=== PATIENT | female | born 1990 | race Two or more races ===

== ENCOUNTER 2017-03-30 13:52 | Emergency (ER) | payer MEDICAID ==
[~2017-03-30] VITALS: Ht 170.2 cm; Wt 105.5 kg
[2017-03-30] MEDS ORDERED: DIVA500T35 PO (14:40)
[2017-03-30] MEDS ORDERED: BENZ-51 PO (14:40)
[2017-03-30] MEDS ORDERED: CLOZ100 PO ×2 (14:40)
[2017-03-30] MEDS ORDERED: ALBU8.5H8 IH (14:40)
[2017-03-30] MEDS ORDERED: FAMO20 PO (14:40)
[2017-03-30] MEDS ORDERED: AMAN100C12 PO (14:40)
[2017-03-30] MEDS ORDERED: LITH300C3 PO (14:40)
[2017-03-30] MEDS ORDERED: PALI6 PO (14:40)
[2017-03-30] MEDS ORDERED: LORA0.5T2 PO (14:40)
[2017-03-30 16:06] LABS: BASOPHILS % (AUTO) 0.6 % (0.0-2.0); EOSINOPHILS % (AUTO) 3.2 % (1.0-6.0); HEMATOCRIT 42.6 % (36-46); HEMOGLOBIN 14.8 g/dL (12.0-16.0); LYMPHOCYTES # (AUTO) 2.5 K/uL (1.0-4.8); LYMPHOCYTES % (AUTO) 38.7 % (22.0-44.0); MEAN CORPUSCULAR HEMOGLOBIN 31.9 pg (26.0-34.0); MEAN CORPUSCULAR HGB CONC 34.7 G/dL (31.0-37.0); MEAN CORPUSCULAR VOLUME 92 fL (80-100); MONOCYTES # (AUTO) 0.5 K/uL (0.1-1.0); MONOCYTES % (AUTO) 8.1 % (2.0-9.0); NEUTROPHILS # (AUTO) 3.2 K/uL (1.8-7.7); NEUTROPHILS % (AUTO) 49.4 % (40.0-70.0); PLATELET COUNT (AUTO) 143 K/uL (150-450); RED BLOOD CELL COUNT(AUTO) 4.64 MIL/uL (4.00-5.20); RED CELL DISTRIBUTION WIDTH 12.4 % (11.5-14.5)
[2017-03-30 16:18] LABS: ANION GAP 13 mmol/L (8-16); CALCIUM, TOTAL 9.3 mg/dL (8.8-10.5); CARBON DIOXIDE 24 mmol/L (22-29); CHLORIDE 105 mmol/L (98-107); CREATININE 0.75 mg/dL (0.60-1.30); GLOMERULAR FILTR. RATE CALC > 60 mL/min (>60); GLUCOSE,RANDOM 93 mg/dL (70-110); POTASSIUM 4.1 mmol/L (3.5-5.1); SODIUM SERUM 142 mmol/L (136-145); UREA NITROGEN, BLOOD 17 mg/dL (7-18)
[2017-03-30 16:25] LABS: LITHIUM < 0.20 mmol/L (0.60-1.20)
[2017-03-30 16:33] LABS: ALANINE AMINOTRANSFERASE 22 U/L (12-78); ALBUMIN 4.1 g/dL (3.4-5.0); ALKALINE PHOSPHATASE 111 U/L (46-116); ASPARTATE AMINOTRANSFERASE 18 U/L (15-37); BILIRUBIN,TOTAL 0.3 mg/dL (0.1-1.0); THYROID STIMULATING HORMONE 1.94 uIU/mL (0.36-3.74); TOTAL PROTEIN, SERUM 7.3 g/dL (6.4-8.2); VALPROIC ACID 70 mcg/mL (50-100)
[2017-03-30 18:24] LABS: AMPHET/METH SCREEN,URINE NEGATIVE (NEGATIVE); BARBITURATE SCREEN, URINE NEGATIVE (NEGATIVE); BENZODIAZEPINES SCREEN,URINE NEGATIVE (NEGATIVE); CANNABINOID SCREEN,URINE NEGATIVE (NEGATIVE); COCAINE SCREEN,URINE NEGATIVE (NEGATIVE); METHADONE SCREEN, URINE NEGATIVE (NEGATIVE); OPIATE SCREEN,URINE NEGATIVE (NEGATIVE)
[2017-03-30 18:27] LABS: PHENCYCLIDINE SCREEN,URINE NEGATIVE (NEGATIVE)
[2017-03-30] MEDS ORDERED: HALOPERIDOL 5 MG TABLET PO ONE (20:15)
[2017-03-30 20:40] VITALS: BP 118/78
== END 2017-03-30 20:45 | disposition home or self-care (01) ==
LOC: EMS 13:53
DX: F20.9 Schizophrenia, unspecified (principal); F32.9 Major depressive disorder, single episode, unspecified; J45.909 Unspecified asthma, uncomplicated; F17.210 Nicotine dependence, cigarettes, uncomplicated; Z88.0 Allergy status to penicillin
CPT/HCPCS: 36415; 80053; 80164; 80178; 80307; 84443; 84703; 85025; 99284; G0480

== ENCOUNTER 2017-12-12 04:07 | Emergency (ER) | payer MEDICAID ==
[~2017-12-12] VITALS: Ht 167.6 cm; Wt 76.0 kg
[~2017-12-12 04:07] MED LIST: ALBU8.5H8 IH; AMAN100C12 PO; CLOZ100 PO; DIVA-78 PO; LITH300C3 PO; LORA0.5T2 PO; PALI1.5T PO; PALI6 PO
[2017-12-12 05:12] LABS: APPEARANCE,URINE CLEAR (CLEAR); BILIRUBIN,URINE NEGATIVE (NEGATIVE); GLUCOSE, URINE (UA) NEGATIVE (NEGATIVE); KETONES,URINE NEGATIVE (NEGATIVE); LEUKOCYTE ESTERASE ,URINE NEGATIVE (NEGATIVE); NITRATE,URINE NEGATIVE (NEGATIVE); OCCULT BLOOD,URINE NEGATIVE (NEGATIVE); PROTEIN,URINE NEGATIVE (NEGATIVE); UROBILINOGEN,URINE 0.2 mg/dL (<=1.0)
[2017-12-12 05:17] LABS: AMPHET/METH SCREEN,URINE NEGATIVE (NEGATIVE); BARBITURATE SCREEN, URINE NEGATIVE (NEGATIVE); BENZODIAZEPINES SCREEN,URINE NEGATIVE (NEGATIVE); CANNABINOID SCREEN,URINE NEGATIVE (NEGATIVE); COCAINE SCREEN,URINE NEGATIVE (NEGATIVE); METHADONE SCREEN, URINE NEGATIVE (NEGATIVE); OPIATE SCREEN,URINE NEGATIVE (NEGATIVE)
[2017-12-12 05:25] LABS: PHENCYCLIDINE SCREEN,URINE NEGATIVE (NEGATIVE)
[2017-12-12 05:44] LABS: ANION GAP 7 mmol/L (8-16); CALCIUM, TOTAL 9.2 mg/dL (8.8-10.5); CARBON DIOXIDE 27 mmol/L (22-29); CHLORIDE 105 mmol/L (98-107); GLOMERULAR FILTR. RATE CALC > 60 mL/min (>60); GLUCOSE,RANDOM 90 mg/dL (70-110); POTASSIUM 4.2 mmol/L (3.5-5.1); SODIUM SERUM 139 mmol/L (136-145); UREA NITROGEN, BLOOD 8 mg/dL (7-18)
[2017-12-12 05:50] LABS: ALANINE AMINOTRANSFERASE 37 U/L (12-78); ALBUMIN 3.3 g/dL (3.4-5.0); ALKALINE PHOSPHATASE 92 U/L (46-116); ASPARTATE AMINOTRANSFERASE 30 U/L (15-37); BILIRUBIN,TOTAL 0.5 mg/dL (0.1-1.0); TOTAL PROTEIN, SERUM 6.9 g/dL (6.4-8.2)
[2017-12-12 06:03] LABS: BASOPHILS % (AUTO) 0.6 % (0.0-2.0); EOSINOPHILS % (AUTO) 1.1 % (1.0-6.0); HEMOGLOBIN 14.6 g/dL (12.0-16.0); LYMPHOCYTES % (AUTO) 44.3 % (22.0-44.0); MEAN CORPUSCULAR HEMOGLOBIN 32.2 pg (26.0-34.0); MEAN CORPUSCULAR HGB CONC 35.7 G/dL (31.0-37.0); MEAN CORPUSCULAR VOLUME 90 fL (80-100); MONOCYTES # (AUTO) 0.5 K/uL (0.1-1.0); MONOCYTES % (AUTO) 10.8 % (2.0-9.0); NEUTROPHILS # (AUTO) 1.9 K/uL (1.8-7.7); NEUTROPHILS % (AUTO) 43.2 % (40.0-70.0); PLATELET COUNT (AUTO) 164 K/uL (150-450); RED BLOOD CELL COUNT(AUTO) 4.54 MIL/uL (4.00-5.20); RED CELL DISTRIBUTION WIDTH 12.8 % (11.5-14.5)
[2017-12-12 07:27] VITALS: BP 117/73
== END 2017-12-12 07:57 | disposition home or self-care (01) ==
LOC: EMS 04:09
DX: S00.83XA Contusion of other part of head, initial encounter (principal); F20.9 Schizophrenia, unspecified; F31.9 Bipolar disorder, unspecified; F41.9 Anxiety disorder, unspecified; F17.210 Nicotine dependence, cigarettes, uncomplicated; J45.909 Unspecified asthma, uncomplicated; Z88.0 Allergy status to penicillin; Z79.899 Other long term (current) drug therapy; W19.XXXA Unspecified fall, initial encounter; Y93.89 Activity, other specified; Y92.89 Other specified places as the place of occurrence of the external cause; Y99.8 Other external cause status
CPT/HCPCS: 51701; 70450

== ENCOUNTER 2017-12-29 10:43 | Emergency (ER) | payer MEDICAID ==
[~2017-12-29] VITALS: Ht 162.6 cm; Wt 72.7 kg
[2017-12-29] MEDS ORDERED: HALOPERIDOL LACTATE 5 MG/ML VIAL IM ONE (11:00)
[2017-12-29] MEDS ORDERED: DiphenhydrAMINE HCL 50 MG/ML VIAL IM ONE (11:00)
[2017-12-29] MEDS ORDERED: LORazepam 2 MG/ML VIAL IM ONE (11:00)
[2017-12-29] MEDS ORDERED: PERTUSS(ACELL),DIPH,TET VAC/PF 0.5 ML VIAL IM ONE (12:15)
[2017-12-29 13:56] VITALS: BP 101/69
== END 2017-12-29 14:39 | disposition home or self-care (01) ==
LOC: EMS 10:44
DX: S01.511A Laceration without foreign body of lip, initial encounter (principal); F41.9 Anxiety disorder, unspecified; F32.9 Major depressive disorder, single episode, unspecified; F20.9 Schizophrenia, unspecified; F17.210 Nicotine dependence, cigarettes, uncomplicated; Z88.0 Allergy status to penicillin; Y04.0XXA Assault by unarmed brawl or fight, initial encounter; Y93.89 Activity, other specified; Y92.89 Other specified places as the place of occurrence of the external cause; Y99.8 Other external cause status
CPT/HCPCS: 70450; 90471; 90715; 96372; 99284; J1200; J1630; J2060

== ENCOUNTER 2018-01-10 10:34 | Emergency (ER) | payer MEDICAID ==
[~2018-01-10] VITALS: Ht 172.7 cm; Wt 84.9 kg
[2018-01-10 13:16] VITALS: BP 101/53
== END 2018-01-10 14:18 | disposition home or self-care (01) ==
LOC: EMS 10:36
DX: S01.511A Laceration without foreign body of lip, initial encounter (principal); M25.551 Pain in right hip; J45.909 Unspecified asthma, uncomplicated; F32.9 Major depressive disorder, single episode, unspecified; F20.9 Schizophrenia, unspecified; F41.9 Anxiety disorder, unspecified; F17.210 Nicotine dependence, cigarettes, uncomplicated; Z88.0 Allergy status to penicillin; W19.XXXA Unspecified fall, initial encounter; Y93.89 Activity, other specified; Y92.89 Other specified places as the place of occurrence of the external cause; Y99.8 Other external cause status
CPT/HCPCS: 70450; 99406

== ENCOUNTER 2018-04-26 13:40 | Inpatient (IN) | payer MEDICAID ==
[~2018-04-26] VITALS: Ht 167.6 cm; Wt 66.0 kg
[~2018-04-26 13:40] MED LIST changes: -ALBU8.5H8 IH; -AMAN100C12 PO; +BENZ1TAB10 PO; +CLON2 PO; -CLOZ100 PO; -DIVA-78 PO; +LACT30L PO; +LEVO250 PO; -LITH300C3 PO; -LORA0.5T2 PO; +MEGE400O4 PO; -PALI1.5T PO; -PALI6 PO; +RIFAX550 PO
[2018-04-26] MEDS ORDERED: ZOLPIDEM TARTRATE 10 MG TABLET PO PRN (15:15)
[2018-04-26] MEDS: RIFAXIMIN 550 MG TABLET PO SCH (18:30)
[2018-04-26] MEDS: LACTULOSE 20 GM/30 ML SOLUTION UDCUP PO SCH (18:30)
[2018-04-26 19:40] VITALS: BP 120/76
[2018-04-27 08:25] VITALS: BP 122/77
[2018-04-27] MEDS: LACTULOSE 20 GM/30 ML SOLUTION UDCUP PO SCH ×2 (09:00→17:55)
[2018-04-27] MEDS: RIFAXIMIN 550 MG TABLET PO SCH ×3 (10:10→17:55)
[2018-04-27] MEDS: LEVOFLOXACIN 250 MG TABLET PO SCH (10:10)
[2018-04-27 16:01] VITALS: BP 122/82
[2018-04-28] MEDS: RIFAXIMIN 550 MG TABLET PO SCH ×3 (09:12→17:45)
[2018-04-28] MEDS: LEVOFLOXACIN 250 MG TABLET PO SCH (09:12)
[2018-04-28] MEDS: LACTULOSE 20 GM/30 ML SOLUTION UDCUP PO SCH ×2 (09:13→17:45)
[2018-04-28 13:54] VITALS: BP 85/67
[2018-04-28 14:50] LABS: THYROID STIMULATING HORMONE < 0.01 uIU/mL (0.36-3.74)
[2018-04-28 16:00] VITALS: BP 114/7
[2018-04-28] MEDS: METHIMAZOLE 5 MG TABLET PO SCH (17:45)
[2018-04-29] MEDS: RIFAXIMIN 550 MG TABLET PO SCH ×3 (08:01→16:49)
[2018-04-29] MEDS: LACTULOSE 20 GM/30 ML SOLUTION UDCUP PO SCH ×2 (08:01→16:48)
[2018-04-29] MEDS: METHIMAZOLE 5 MG TABLET PO SCH (08:01)
[2018-04-29 08:30] VITALS: BP 109/75
[2018-04-29 16:45] VITALS: BP 108/60
[2018-04-30] MEDS: RIFAXIMIN 550 MG TABLET PO SCH ×3 (08:22→17:51)
[2018-04-30] MEDS: METHIMAZOLE 5 MG TABLET PO SCH (08:22)
[2018-04-30] MEDS: LACTULOSE 20 GM/30 ML SOLUTION UDCUP PO SCH ×2 (08:22→17:50)
[2018-05-01] MEDS: RIFAXIMIN 550 MG TABLET PO SCH ×3 (08:35→17:20)
[2018-05-01] MEDS: METHIMAZOLE 5 MG TABLET PO SCH (08:35)
[2018-05-01] MEDS: LACTULOSE 20 GM/30 ML SOLUTION UDCUP PO SCH ×2 (08:35→17:20)
[2018-05-01 09:00] VITALS: BP 108/69
[2018-05-01 16:07] VITALS: BP 109/72
[2018-05-02 07:22] LABS: ALANINE AMINOTRANSFERASE 26 U/L (12-78); ALBUMIN 3.7 g/dL (3.4-5.0); ALKALINE PHOSPHATASE 69 U/L (46-116); ANION GAP 9 mmol/L (8-16); ASPARTATE AMINOTRANSFERASE 21 U/L (15-37); BILIRUBIN,TOTAL 0.8 mg/dL (0.1-1.0); CARBON DIOXIDE 26 mmol/L (22-29); CHLORIDE 104 mmol/L (98-107); CREATININE 0.75 mg/dL (0.60-1.30); GLOMERULAR FILTR. RATE CALC > 60 mL/min (>60); GLUCOSE,RANDOM 88 mg/dL (70-110); POTASSIUM 4.1 mmol/L (3.5-5.1); SODIUM SERUM 139 mmol/L (136-145); TOTAL PROTEIN, SERUM 6.1 g/dL (6.4-8.2); UREA NITROGEN, BLOOD 14 mg/dL (7-18)
[2018-05-02 07:23] LABS: CALCIUM, TOTAL 13.5 mg/dL (8.8-10.5)
[2018-05-02] MEDS: LACTULOSE 20 GM/30 ML SOLUTION UDCUP PO SCH (08:56)
[2018-05-02] MEDS: METHIMAZOLE 5 MG TABLET PO SCH (08:56)
[2018-05-02] MEDS: RIFAXIMIN 550 MG TABLET PO SCH (08:56)
[2018-05-02] MEDS ORDERED: SODIUM CHLORIDE 0.45% 1,000 ML IV SCH (11:00)
== END 2018-05-02 10:28 | disposition short-term general hospital (02) | DRG 750 ==
LOC: 3EC 13:40
PROVIDERS: ADMIT Psychiatry & Neurology Psychiatry; ATTEND Psychiatry & Neurology Psychiatry
DX: F25.0 Schizoaffective disorder, bipolar type (principal); K70.30 Alcoholic cirrhosis of liver without ascites; K72.90 Hepatic failure, unspecified without coma; J45.909 Unspecified asthma, uncomplicated; Z81.8 Family history of other mental and behavioral disorders; Z87.01 Personal history of pneumonia (recurrent); Z88.0 Allergy status to penicillin; Z79.899 Other long term (current) drug therapy
CPT/HCPCS: 76536; 84439; 84443; 84445; 84481; 86376; 87081; 92610

== ENCOUNTER 2018-05-02 10:35 | Inpatient (IN) | payer MEDICAID ==
[~2018-05-02] VITALS: Ht 167.6 cm; Wt 72.1 kg
[2018-05-02 11:15] VITALS: BP 91/66
[2018-05-02] MEDS: CALCITONIN,SALMON,SYNTHETIC 200 UNITS/ML 2 ML VIAL SQ SCH ×2 (12:45→20:56)
[2018-05-02] MEDS: SODIUM CHLORIDE 0.45% 1,000 ML IV SCH ×2 (12:51→22:52)
[2018-05-02] MEDS ORDERED: PAMIDRONATE DISODIUM 60 MG in SODIUM CHLORIDE 0.9% 500 ML IV ONE (13:00)
[2018-05-02] MEDS ORDERED: MORPHINE SULFATE 2 MG/ML SYRINGE IVP PRN (13:30)
[2018-05-02] MEDS ORDERED: MAGNESIUM HYDROXIDE SUSPENSION 30 ML UDCUP PO PRN (13:30)
[2018-05-02] MEDS ORDERED: BISACODYL 10 MG RECTAL RECTAL SUPPOSITORY PR PRN (13:30)
[2018-05-02] MEDS ORDERED: ONDANSETRON HCL 4 MG/2 ML VIAL IVP PRN (13:30)
[2018-05-02] MEDS ORDERED: SODIUM CHLORIDE 0.9% 1,000 ML IV ONE (13:30)
[2018-05-02] MEDS ORDERED: ZOLPIDEM TARTRATE 5 MG TABLET PO PRN (13:30)
[2018-05-02 15:14] VITALS: BP 95/58
[2018-05-02] MEDS: HEPARIN SODIUM,PORCINE 5,000 UNITS/ML VIAL SQ SCH ×2 (16:13→22:53)
[2018-05-02 16:43] VITALS: BP 128/49
[2018-05-02 17:24] LABS: ANION GAP 9 mmol/L (8-16); CARBON DIOXIDE 25 mmol/L (22-29); CHLORIDE 102 mmol/L (98-107); CREATININE 0.67 mg/dL (0.60-1.30); GLOMERULAR FILTR. RATE CALC > 60 mL/min (>60); GLUCOSE,RANDOM 88 mg/dL (70-110); PHOSPHORUS 4.4 mg/dL (2.5-4.9); POTASSIUM 4.2 mmol/L (3.5-5.1); SODIUM SERUM 136 mmol/L (136-145); UREA NITROGEN, BLOOD 13 mg/dL (7-18)
[2018-05-02 17:31] LABS: CALCIUM, TOTAL 12.3 mg/dL (8.8-10.5)
[2018-05-02 20:00] VITALS: BP 95/50
[2018-05-02] MEDS: DOCUSATE SODIUM 100 MG CAPSULE PO SCH (20:56)
[2018-05-02] MEDS ORDERED: SODIUM CHLORIDE 0.9% 250 ML IV ONE (23:10)
[2018-05-02 23:17] VITALS: BP 99/65
[2018-05-03 04:16] VITALS: BP 99/55
[2018-05-03] MEDS: SODIUM CHLORIDE 0.45% 1,000 ML IV SCH ×4 (05:05→23:04)
[2018-05-03] MEDS: HEPARIN SODIUM,PORCINE 5,000 UNITS/ML VIAL SQ SCH ×4 (08:00→23:03)
[2018-05-03 08:15] VITALS: BP 101/65
[2018-05-03] MEDS: DOCUSATE SODIUM 100 MG CAPSULE PO SCH ×3 (09:00→20:14)
[2018-05-03] MEDS: PANTOPRAZOLE SODIUM 40 MG DR TABLET PO SCH (09:17)
[2018-05-03] MEDS: METHIMAZOLE 10 MG TABLET PO SCH (09:17)
[2018-05-03] MEDS: CALCITONIN,SALMON,SYNTHETIC 200 UNITS/ML 2 ML VIAL SQ SCH ×2 (09:18→20:14)
[2018-05-03] MEDS: HYDROCODONE/ACETAMINOPHEN 5-325 MG TABLET PO PRN (09:19)
[2018-05-03 11:15] VITALS: BP 99/66
[2018-05-03 15:45] VITALS: BP 112/65
[2018-05-03 20:57] VITALS: BP 98/60
[2018-05-04 04:08] VITALS: BP 97/46
[2018-05-04] MEDS: HYDROCODONE/ACETAMINOPHEN 5-325 MG TABLET PO PRN ×2 (04:09→15:36)
[2018-05-04] MEDS: SODIUM CHLORIDE 0.45% 1,000 ML IV SCH (05:13)
[2018-05-04 07:57] VITALS: BP 101/57
[2018-05-04] MEDS: METHIMAZOLE 10 MG TABLET PO SCH (08:08)
[2018-05-04] MEDS: PANTOPRAZOLE SODIUM 40 MG DR TABLET PO SCH (08:08)
[2018-05-04] MEDS: HEPARIN SODIUM,PORCINE 5,000 UNITS/ML VIAL SQ SCH ×3 (08:11→23:25)
[2018-05-04] MEDS: DOCUSATE SODIUM 100 MG CAPSULE PO SCH ×2 (08:11→20:39)
[2018-05-04] MEDS: CALCITONIN,SALMON,SYNTHETIC 200 UNITS/ML 2 ML VIAL SQ SCH (08:13)
[2018-05-04 09:02] LABS: ANION GAP 12 mmol/L (8-16); CALCIUM, TOTAL 8.9 mg/dL (8.8-10.5); CARBON DIOXIDE 21 mmol/L (22-29); CHLORIDE 105 mmol/L (98-107); CREATININE 0.52 mg/dL (0.60-1.30); GLOMERULAR FILTR. RATE CALC > 60 mL/min (>60); GLUCOSE,RANDOM 89 mg/dL (70-110); PHOSPHORUS 2.2 mg/dL (2.5-4.9); POTASSIUM 3.1 mmol/L (3.5-5.1); SODIUM SERUM 138 mmol/L (136-145); UREA NITROGEN, BLOOD 4 mg/dL (7-18)
[2018-05-04] MEDS ORDERED: MAGNESIUM SULFATE 2 GM/WATER 50 ML IV PRN (10:00)
[2018-05-04] MEDS ORDERED: MAGNESIUM SULFATE 4 GM/WATER 100 ML IV PRN (10:00)
[2018-05-04 11:14] LABS: ALBUMIN 2.9 g/dL (3.4-5.0)
[2018-05-04] MEDS: POTASSIUM CHLORIDE 20 MEQ ER TABLET PO PRN (11:17)
[2018-05-04] MEDS ORDERED: SODIUM CHLORIDE 0.9% 500 ML IV ONE (11:35)
[2018-05-04] MEDS: POTASSIUM CHL 10 MEQ/WATER 50 ML IV PRN ×6 (11:39→23:22)
[2018-05-04 12:17] VITALS: BP 95/50
[2018-05-04 20:40] VITALS: BP 93/63
[2018-05-04] MEDS: ACETAMINOPHEN 325 MG TABLET PO PRN (21:01)
[2018-05-05] VITALS (7 sets, daily range): BP systolic 88–126; BP diastolic 53–93
[2018-05-05 02:08] LABS: POTASSIUM 3.8 mmol/L (3.5-5.1)
[2018-05-05 03:32] LABS: MAGNESIUM 1.9 mg/dL (1.80-2.40)
[2018-05-05] MEDS: ACETAMINOPHEN 325 MG TABLET PO PRN (04:40)
[2018-05-05] MEDS: HEPARIN SODIUM,PORCINE 5,000 UNITS/ML VIAL SQ SCH ×3 (08:55→15:53)
[2018-05-05] MEDS: PANTOPRAZOLE SODIUM 40 MG DR TABLET PO SCH ×2 (08:57→09:00)
[2018-05-05] MEDS: DOCUSATE SODIUM 100 MG CAPSULE PO SCH ×3 (08:57→20:32)
[2018-05-05] MEDS: METHIMAZOLE 10 MG TABLET PO SCH ×2 (08:57→09:00)
[2018-05-05] MEDS: HYDROCODONE/ACETAMINOPHEN 5-325 MG TABLET PO PRN (15:15)
[2018-05-05] MEDS: HALOPERIDOL LACTATE 5 MG/ML VIAL IM PRN (15:56)
[2018-05-06 06:33] VITALS: BP 103/53
[2018-05-06 06:46] LABS: ANION GAP 15 mmol/L (8-16); CALCIUM, TOTAL 8.7 mg/dL (8.8-10.5); CARBON DIOXIDE 21 mmol/L (22-29); CHLORIDE 107 mmol/L (98-107); CREATININE 0.52 mg/dL (0.60-1.30); GLOMERULAR FILTR. RATE CALC > 60 mL/min (>60); GLUCOSE,RANDOM 88 mg/dL (70-110); PHOSPHORUS 2.2 mg/dL (2.5-4.9); POTASSIUM 3.3 mmol/L (3.5-5.1); SODIUM SERUM 143 mmol/L (136-145); UREA NITROGEN, BLOOD 4 mg/dL (7-18)
[2018-05-06] MEDS: POTASSIUM CHL 10 MEQ/WATER 50 ML IV PRN ×3 (07:26→09:55)
[2018-05-06] MEDS ORDERED: SODIUM CHLORIDE 0.9% 500 ML IV ONE (08:37)
[2018-05-06] MEDS: DOCUSATE SODIUM 100 MG CAPSULE PO SCH ×2 (08:40→21:00)
[2018-05-06] MEDS: HEPARIN SODIUM,PORCINE 5,000 UNITS/ML VIAL SQ SCH ×3 (08:40→16:00)
[2018-05-06] MEDS: METHIMAZOLE 10 MG TABLET PO SCH (08:41)
[2018-05-06] MEDS: MAGNESIUM OXIDE 400 MG TABLET PO PRN ×3 (08:41→16:15)
[2018-05-06] MEDS: PANTOPRAZOLE SODIUM 40 MG DR TABLET PO SCH (08:41)
[2018-05-06 09:05] VITALS: BP 91/56
[2018-05-06 11:20] VITALS: BP 90/58
[2018-05-06 15:32] VITALS: BP 87/45
[2018-05-06] MEDS: HALOPERIDOL LACTATE 5 MG/ML VIAL IM PRN (19:38)
[2018-05-06 20:00] VITALS: BP 130/96
[2018-05-07] VITALS (7 sets, daily range): BP systolic 92–115; BP diastolic 53–68
[2018-05-07] MEDS: PANTOPRAZOLE SODIUM 40 MG DR TABLET PO SCH (09:00)
[2018-05-07] MEDS: DOCUSATE SODIUM 100 MG CAPSULE PO SCH ×2 (09:00→20:53)
[2018-05-07] MEDS: HEPARIN SODIUM,PORCINE 5,000 UNITS/ML VIAL SQ SCH ×4 (09:21→23:39)
[2018-05-07 09:40] LABS: ANION GAP 13 mmol/L (8-16); CALCIUM, TOTAL 8.5 mg/dL (8.8-10.5); CARBON DIOXIDE 22 mmol/L (22-29); CHLORIDE 107 mmol/L (98-107); CREATININE 0.44 mg/dL (0.60-1.30); GLOMERULAR FILTR. RATE CALC > 60 mL/min (>60); GLUCOSE,RANDOM 99 mg/dL (70-110); POTASSIUM 3.6 mmol/L (3.5-5.1); SODIUM SERUM 142 mmol/L (136-145); UREA NITROGEN, BLOOD 7 mg/dL (7-18)
[2018-05-07] MEDS ORDERED: SODIUM CHLORIDE 0.9% 250 ML IV ONE (10:16)
[2018-05-07] MEDS: POTASSIUM CHL 10 MEQ/WATER 50 ML IV PRN (10:19)
[2018-05-07] MEDS: MAGNESIUM OXIDE 400 MG TABLET PO PRN ×3 (10:20→20:53)
[2018-05-07] MEDS: METHIMAZOLE 10 MG TABLET PO SCH (10:20)
[2018-05-07] MEDS: HALOPERIDOL LACTATE 5 MG/ML VIAL IM PRN (10:24)
[2018-05-07] MEDS ORDERED: DEXTROSE 5% IV ONE (10:30)
[2018-05-07] MEDS ORDERED: WATER IV ONE (10:30)
[2018-05-07] MEDS ORDERED: POTASSIUM PHOS M BASIC D BASIC IV ONE (10:30)
[2018-05-07] MEDS ORDERED: SODIUM PHOS,M-BASIC-D-BASIC 20 MEQ in DEXTROSE 5%-WATER 100 ML IV ONE (12:15)
[2018-05-07] MEDS ORDERED: MAGNESIUM SULFATE 1 GM in DEXTROSE 5%-WATER 50 ML IV ONE (12:15)
[2018-05-07] MEDS: POTASSIUM PHOS/SODIUM PHOS MIXTURE 1 POWDER PACKET PO SCH ×2 (16:05→20:53)
[2018-05-07] MEDS: LORazepam 2 MG/ML VIAL IVP PRN (23:38)
[2018-05-07 23:53] LABS: GLUCOMETER DEV NAME(LOC) 5S.1; GLUCOSE,POINT OF CARE 74 MG/DL (70-110)
[2018-05-08] MEDS: HALOPERIDOL LACTATE 5 MG/ML VIAL IM PRN (01:13)
[2018-05-08 05:59] VITALS: BP 90/51
[2018-05-08] MEDS ORDERED: SODIUM CHLORIDE 0.9% 500 ML IV ONE ×2 (06:14→06:15)
[2018-05-08 08:01] VITALS: BP 108/52
[2018-05-08 08:39] LABS: ANION GAP 12 mmol/L (8-16); CALCIUM, TOTAL 7.9 mg/dL (8.8-10.5); CARBON DIOXIDE 22 mmol/L (22-29); CHLORIDE 108 mmol/L (98-107); CREATININE 0.53 mg/dL (0.60-1.30); GLOMERULAR FILTR. RATE CALC > 60 mL/min (>60); GLUCOSE,RANDOM 87 mg/dL (70-110); PHOSPHORUS 1.8 mg/dL (2.5-4.9); POTASSIUM 3.3 mmol/L (3.5-5.1); SODIUM SERUM 142 mmol/L (136-145); UREA NITROGEN, BLOOD 4 mg/dL (7-18)
[2018-05-08] MEDS: HEPARIN SODIUM,PORCINE 5,000 UNITS/ML VIAL SQ SCH ×2 (08:44→16:33)
[2018-05-08] MEDS: PANTOPRAZOLE SODIUM 40 MG DR TABLET PO SCH (08:44)
[2018-05-08] MEDS: METHIMAZOLE 10 MG TABLET PO SCH (08:44)
[2018-05-08] MEDS: DOCUSATE SODIUM 100 MG CAPSULE PO SCH ×2 (08:44→21:17)
[2018-05-08 10:11] LABS: BASOPHILS % (AUTO) 0.5 % (0.0-2.0); EOSINOPHILS % (AUTO) 1.4 % (1.0-6.0); HEMATOCRIT 27.3 % (36-46); HEMOGLOBIN 9.7 g/dL (12.0-16.0); LYMPHOCYTES # (AUTO) 2.2 K/uL (1.0-4.8); LYMPHOCYTES % (AUTO) 55.7 % (22.0-44.0); MEAN CORPUSCULAR HEMOGLOBIN 30.9 pg (26.0-34.0); MEAN CORPUSCULAR HGB CONC 35.6 G/dL (31.0-37.0); MEAN CORPUSCULAR VOLUME 87 fL (80-100); MONOCYTES # (AUTO) 0.2 K/uL (0.1-1.0); MONOCYTES % (AUTO) 6.3 % (2.0-9.0); NEUTROPHILS # (AUTO) 1.4 K/uL (1.8-7.7); NEUTROPHILS % (AUTO) 36.1 % (40.0-70.0); PLATELET COUNT (AUTO) 133 K/uL (150-450); RED BLOOD CELL COUNT(AUTO) 3.15 MIL/uL (4.00-5.20); RED CELL DISTRIBUTION WIDTH 12.2 % (11.5-14.5)
[2018-05-08 12:05] VITALS: BP 84/49
[2018-05-08 16:05] VITALS: BP 132/76
[2018-05-08] MEDS: LORazepam 2 MG/ML VIAL IVP PRN (16:33)
[2018-05-08] MEDS: POTASSIUM PHOS/SODIUM PHOS MIXTURE 1 POWDER PACKET PO SCH ×2 (16:49→21:17)
[2018-05-08] MEDS: ALBUMIN HUMAN 25%-25GM/100ML 100 ML IV SCH (17:55)
[2018-05-08 19:49] VITALS: BP 107/65
[2018-05-08 23:41] VITALS: BP 106/54
[2018-05-09] MEDS: HEPARIN SODIUM,PORCINE 5,000 UNITS/ML VIAL SQ SCH ×4 (00:52→23:57)
[2018-05-09] MEDS: ALBUMIN HUMAN 25%-25GM/100ML 100 ML IV SCH ×4 (00:54→23:57)
[2018-05-09 06:10] VITALS: BP 98/47
[2018-05-09 08:13] LABS: ANION GAP 13 mmol/L (8-16); CALCIUM, TOTAL 8.5 mg/dL (8.8-10.5); CARBON DIOXIDE 21 mmol/L (22-29); CHLORIDE 106 mmol/L (98-107); GLOMERULAR FILTR. RATE CALC > 60 mL/min (>60); GLUCOSE,RANDOM 84 mg/dL (70-110); PHOSPHORUS 2.3 mg/dL (2.5-4.9); POTASSIUM 3.4 mmol/L (3.5-5.1); SODIUM SERUM 140 mmol/L (136-145); UREA NITROGEN, BLOOD 5 mg/dL (7-18)
[2018-05-09 09:01] VITALS: BP 120/75
[2018-05-09] MEDS: METHIMAZOLE 10 MG TABLET PO SCH (09:03)
[2018-05-09] MEDS: PANTOPRAZOLE SODIUM 40 MG DR TABLET PO SCH (09:03)
[2018-05-09] MEDS: POTASSIUM PHOS/SODIUM PHOS MIXTURE 1 POWDER PACKET PO SCH ×3 (09:03→20:22)
[2018-05-09] MEDS: ClonazePAM 1 MG TABLET PO PRN ×2 (09:03→20:21)
[2018-05-09] MEDS: DOCUSATE SODIUM 100 MG CAPSULE PO SCH ×2 (09:04→20:21)
[2018-05-09 11:18] VITALS: BP 89/54
[2018-05-09] MEDS: POTASSIUM CHLORIDE 20 MEQ ER TABLET PO PRN (14:19)
[2018-05-09] MEDS: MAGNESIUM OXIDE 400 MG TABLET PO PRN (14:19)
[2018-05-09] MEDS ORDERED: MAGNESIUM SULFATE 1 GM in DEXTROSE 5%-WATER 50 ML IV ONE (16:45)
[2018-05-09 16:59] VITALS: BP 88/49
[2018-05-09 19:28] VITALS: BP 96/58
[2018-05-09] MEDS: POTASSIUM PHOS M BASIC D BASIC IV SCH (20:21)
[2018-05-09] MEDS: SODIUM CHLORIDE 0.45% IV SCH (20:21)
[2018-05-10] VITALS (7 sets, daily range): BP systolic 92–104; BP diastolic 50–67
[2018-05-10] MEDS: POTASSIUM PHOS M BASIC D BASIC IV SCH ×3 (07:03→21:26)
[2018-05-10] MEDS: SODIUM CHLORIDE 0.45% IV SCH ×3 (07:03→21:26)
[2018-05-10 08:17] LABS: ANION GAP 12 mmol/L (8-16); CARBON DIOXIDE 22 mmol/L (22-29); CHLORIDE 106 mmol/L (98-107); CREATININE 0.35 mg/dL (0.60-1.30); GLOMERULAR FILTR. RATE CALC > 60 mL/min (>60); GLUCOSE,RANDOM 85 mg/dL (70-110); PHOSPHORUS 3.1 mg/dL (2.5-4.9); POTASSIUM 4.3 mmol/L (3.5-5.1); SODIUM SERUM 140 mmol/L (136-145); UREA NITROGEN, BLOOD 8 mg/dL (7-18)
[2018-05-10] MEDS: HEPARIN SODIUM,PORCINE 5,000 UNITS/ML VIAL SQ SCH ×2 (08:47→16:51)
[2018-05-10] MEDS: POTASSIUM PHOS/SODIUM PHOS MIXTURE 1 POWDER PACKET PO SCH ×3 (08:48→21:06)
[2018-05-10] MEDS: ClonazePAM 1 MG TABLET PO PRN ×2 (08:48→21:06)
[2018-05-10] MEDS: PANTOPRAZOLE SODIUM 40 MG DR TABLET PO SCH (08:48)
[2018-05-10] MEDS: METHIMAZOLE 10 MG TABLET PO SCH (08:48)
[2018-05-10] MEDS: ALBUMIN HUMAN 25%-25GM/100ML 100 ML IV SCH ×2 (08:48→16:51)
[2018-05-10] MEDS: DOCUSATE SODIUM 100 MG CAPSULE PO SCH ×2 (08:48→21:06)
[2018-05-10] MEDS: LORazepam 2 MG/ML VIAL IVP PRN (16:51)
[2018-05-10] MEDS: HYDROCODONE/ACETAMINOPHEN 5-325 MG TABLET PO PRN (23:57)
[2018-05-11] MEDS: ALBUMIN HUMAN 25%-25GM/100ML 100 ML IV SCH ×3 (00:03→17:20)
[2018-05-11 02:05] VITALS: BP 102/63
[2018-05-11] MEDS: LORazepam 2 MG/ML VIAL IVP PRN (02:09)
[2018-05-11 07:08] LABS: BASOPHILS % (AUTO) 0.3 % (0.0-2.0); EOSINOPHILS % (AUTO) 3.8 % (1.0-6.0); HEMATOCRIT 26.6 % (36-46); HEMOGLOBIN 9.2 g/dL (12.0-16.0); LYMPHOCYTES # (AUTO) 2.2 K/uL (1.0-4.8); LYMPHOCYTES % (AUTO) 53.9 % (22.0-44.0); MEAN CORPUSCULAR HEMOGLOBIN 30.8 pg (26.0-34.0); MEAN CORPUSCULAR HGB CONC 34.6 G/dL (31.0-37.0); MEAN CORPUSCULAR VOLUME 89 fL (80-100); MONOCYTES # (AUTO) 0.3 K/uL (0.1-1.0); MONOCYTES % (AUTO) 6.7 % (2.0-9.0); NEUTROPHILS # (AUTO) 1.5 K/uL (1.8-7.7); NEUTROPHILS % (AUTO) 35.3 % (40.0-70.0); PLATELET COUNT (AUTO) 171 K/uL (150-450); RED BLOOD CELL COUNT(AUTO) 2.98 MIL/uL (4.00-5.20); RED CELL DISTRIBUTION WIDTH 12.4 % (11.5-14.5)
[2018-05-11 07:22] LABS: ALANINE AMINOTRANSFERASE 32 U/L (12-78); ALBUMIN 4.7 g/dL (3.4-5.0); ALKALINE PHOSPHATASE 53 U/L (46-116); ANION GAP 11 mmol/L (8-16); ASPARTATE AMINOTRANSFERASE 17 U/L (15-37); BILIRUBIN,TOTAL 0.5 mg/dL (0.1-1.0); CALCIUM, TOTAL 10.1 mg/dL (8.8-10.5); CARBON DIOXIDE 22 mmol/L (22-29); CHLORIDE 104 mmol/L (98-107); CREATININE 0.55 mg/dL (0.60-1.30); GLOMERULAR FILTR. RATE CALC > 60 mL/min (>60); GLUCOSE,RANDOM 88 mg/dL (70-110); PHOSPHORUS 5.4 mg/dL (2.5-4.9); POTASSIUM 4.6 mmol/L (3.5-5.1); SODIUM SERUM 137 mmol/L (136-145); TOTAL PROTEIN, SERUM 6.7 g/dL (6.4-8.2); UREA NITROGEN, BLOOD 12 mg/dL (7-18)
[2018-05-11 07:25] VITALS: BP 110/64
[2018-05-11] MEDS: HEPARIN SODIUM,PORCINE 5,000 UNITS/ML VIAL SQ SCH ×4 (09:01→23:55)
[2018-05-11] MEDS: POTASSIUM PHOS/SODIUM PHOS MIXTURE 1 POWDER PACKET PO SCH ×3 (09:01→20:08)
[2018-05-11] MEDS: METHIMAZOLE 10 MG TABLET PO SCH (09:02)
[2018-05-11] MEDS: PANTOPRAZOLE SODIUM 40 MG DR TABLET PO SCH (09:02)
[2018-05-11] MEDS: DOCUSATE SODIUM 100 MG CAPSULE PO SCH ×2 (09:02→20:08)
[2018-05-11 11:04] VITALS: BP 103/55
[2018-05-11] MEDS: DEXTROSE 5%-0.9% SODIUM CHL 1,000 ML IV SCH ×2 (11:36→17:56)
[2018-05-11 15:09] VITALS: BP 110/60
[2018-05-11 20:16] VITALS: BP 98/58
[2018-05-11] MEDS: ClonazePAM 1 MG TABLET PO PRN (21:18)
[2018-05-12] MEDS: ALBUMIN HUMAN 25%-25GM/100ML 100 ML IV SCH ×2 (00:04→08:20)
[2018-05-12 04:19] VITALS: BP 94/53
[2018-05-12] MEDS: DEXTROSE 5%-0.9% SODIUM CHL 1,000 ML IV SCH ×2 (04:24→23:24)
[2018-05-12 07:09] LABS: ANION GAP 11 mmol/L (8-16); CALCIUM, TOTAL 10.7 mg/dL (8.8-10.5); CARBON DIOXIDE 24 mmol/L (22-29); CHLORIDE 104 mmol/L (98-107); CREATININE 0.45 mg/dL (0.60-1.30); GLOMERULAR FILTR. RATE CALC > 60 mL/min (>60); GLUCOSE,RANDOM 91 mg/dL (70-110); PHOSPHORUS 5.6 mg/dL (2.5-4.9); POTASSIUM 4.3 mmol/L (3.5-5.1); SODIUM SERUM 139 mmol/L (136-145); UREA NITROGEN, BLOOD 15 mg/dL (7-18)
[2018-05-12 07:45] VITALS: BP 93/57
[2018-05-12] MEDS: POTASSIUM PHOS/SODIUM PHOS MIXTURE 1 POWDER PACKET PO SCH ×3 (08:19→21:00)
[2018-05-12] MEDS: DOCUSATE SODIUM 100 MG CAPSULE PO SCH ×2 (08:20→21:00)
[2018-05-12] MEDS: HEPARIN SODIUM,PORCINE 5,000 UNITS/ML VIAL SQ SCH ×3 (08:20→23:34)
[2018-05-12] MEDS: METHIMAZOLE 10 MG TABLET PO SCH (08:20)
[2018-05-12] MEDS: PANTOPRAZOLE SODIUM 40 MG DR TABLET PO SCH (08:21)
[2018-05-12] MEDS: CALCITONIN,SALMON,SYNTHETIC 200 UNITS/ML 2 ML VIAL SQ SCH ×2 (11:09→21:12)
[2018-05-12 11:20] VITALS: BP 95/58
[2018-05-12] MEDS: LORazepam 2 MG/ML VIAL IVP PRN ×2 (12:24→23:24)
[2018-05-12 16:00] VITALS: BP 94/48
[2018-05-12 19:19] VITALS: BP 114/61
[2018-05-12] MEDS: ClonazePAM 1 MG TABLET PO PRN (19:41)
[2018-05-13] VITALS (7 sets, daily range): BP systolic 98–115; BP diastolic 59–73
[2018-05-13 06:33] LABS: ANION GAP 13 mmol/L (8-16); CALCIUM, TOTAL 9.9 mg/dL (8.8-10.5); CARBON DIOXIDE 23 mmol/L (22-29); CHLORIDE 106 mmol/L (98-107); CREATININE 0.36 mg/dL (0.60-1.30); GLOMERULAR FILTR. RATE CALC > 60 mL/min (>60); GLUCOSE,RANDOM 95 mg/dL (70-110); PHOSPHORUS 3.6 mg/dL (2.5-4.9); POTASSIUM 4.5 mmol/L (3.5-5.1); SODIUM SERUM 142 mmol/L (136-145); UREA NITROGEN, BLOOD 9 mg/dL (7-18)
[2018-05-13] MEDS: POTASSIUM PHOS/SODIUM PHOS MIXTURE 1 POWDER PACKET PO SCH ×3 (09:00→21:00)
[2018-05-13] MEDS: CALCITONIN,SALMON,SYNTHETIC 200 UNITS/ML 2 ML VIAL SQ SCH ×3 (09:00→21:22)
[2018-05-13] MEDS: DOCUSATE SODIUM 100 MG CAPSULE PO SCH ×2 (09:22→21:00)
[2018-05-13] MEDS: PANTOPRAZOLE SODIUM 40 MG DR TABLET PO SCH (09:22)
[2018-05-13] MEDS: METHIMAZOLE 10 MG TABLET PO SCH (09:22)
[2018-05-13] MEDS: DEXTROSE 5%-0.9% SODIUM CHL 1,000 ML IV SCH (09:23)
[2018-05-13] MEDS: HEPARIN SODIUM,PORCINE 5,000 UNITS/ML VIAL SQ SCH ×2 (09:28→15:32)
[2018-05-13] MEDS: MAGNESIUM OXIDE 400 MG TABLET PO PRN ×2 (12:07→17:47)
[2018-05-13] MEDS: LORazepam 2 MG/ML VIAL IVP PRN (15:58)
[2018-05-14] MEDS: MAGNESIUM OXIDE 400 MG TABLET PO PRN (00:06)
[2018-05-14] MEDS: DEXTROSE 5%-0.9% SODIUM CHL 1,000 ML IV SCH ×3 (01:50→15:49)
[2018-05-14 05:24] VITALS: BP 99/68
[2018-05-14] MEDS: POTASSIUM PHOS/SODIUM PHOS MIXTURE 1 POWDER PACKET PO SCH ×3 (09:00→20:30)
[2018-05-14] MEDS: PANTOPRAZOLE SODIUM 40 MG DR TABLET PO SCH (09:21)
[2018-05-14] MEDS: CALCITONIN,SALMON,SYNTHETIC 200 UNITS/ML 2 ML VIAL SQ SCH ×2 (09:21→21:49)
[2018-05-14] MEDS: METHIMAZOLE 10 MG TABLET PO SCH (09:21)
[2018-05-14] MEDS: DOCUSATE SODIUM 100 MG CAPSULE PO SCH ×2 (09:21→20:30)
[2018-05-14] MEDS: HEPARIN SODIUM,PORCINE 5,000 UNITS/ML VIAL SQ SCH ×4 (09:26→23:19)
[2018-05-14] MEDS ORDERED: MAGNESIUM SULFATE 4 GM/WATER 100 ML IV ONE (10:15)
[2018-05-14 10:23] LABS: BASOPHILS % (AUTO) 0.3 % (0.0-2.0); EOSINOPHILS % (AUTO) 3.9 % (1.0-6.0); HEMATOCRIT 31.2 % (36-46); HEMOGLOBIN 10.7 g/dL (12.0-16.0); LYMPHOCYTES # (AUTO) 2.3 K/uL (1.0-4.8); LYMPHOCYTES % (AUTO) 47.2 % (22.0-44.0); MEAN CORPUSCULAR HEMOGLOBIN 31.1 pg (26.0-34.0); MEAN CORPUSCULAR HGB CONC 34.2 G/dL (31.0-37.0); MEAN CORPUSCULAR VOLUME 91 fL (80-100); MONOCYTES # (AUTO) 0.3 K/uL (0.1-1.0); MONOCYTES % (AUTO) 7.1 % (2.0-9.0); NEUTROPHILS % (AUTO) 41.5 % (40.0-70.0); PLATELET COUNT (AUTO) 180 K/uL (150-450); RED BLOOD CELL COUNT(AUTO) 3.43 MIL/uL (4.00-5.20); RED CELL DISTRIBUTION WIDTH 13.8 % (11.5-14.5)
[2018-05-14 10:29] LABS: ANION GAP 16 mmol/L (8-16); CALCIUM, TOTAL 9.6 mg/dL (8.8-10.5); CARBON DIOXIDE 19 mmol/L (22-29); CHLORIDE 107 mmol/L (98-107); CREATININE 0.42 mg/dL (0.60-1.30); GLOMERULAR FILTR. RATE CALC > 60 mL/min (>60); GLUCOSE,RANDOM 97 mg/dL (70-110); POTASSIUM 4.5 mmol/L (3.5-5.1); SODIUM SERUM 142 mmol/L (136-145); UREA NITROGEN, BLOOD 9 mg/dL (7-18)
[2018-05-14 11:28] VITALS: BP 106/68
[2018-05-14 15:48] VITALS: BP 101/65
[2018-05-14 20:16] VITALS: BP 112/60
[2018-05-14] MEDS: ClonazePAM 1 MG TABLET PO PRN (20:30)
[2018-05-14] MEDS: LORazepam 2 MG/ML VIAL IVP PRN (23:18)
[2018-05-15] VITALS (7 sets, daily range): BP systolic 96–104; BP diastolic 46–65
[2018-05-15] MEDS: DEXTROSE 5%-0.9% SODIUM CHL 1,000 ML IV SCH (08:44)
[2018-05-15] MEDS ORDERED: MAGNESIUM SULFATE 3 GM in DEXTROSE 5%-WATER 100 ML IV ONE (09:00)
[2018-05-15] MEDS: POTASSIUM PHOS/SODIUM PHOS MIXTURE 1 POWDER PACKET PO SCH ×3 (09:00→21:06)
[2018-05-15] MEDS: DOCUSATE SODIUM 100 MG CAPSULE PO SCH ×2 (09:06→21:06)
[2018-05-15] MEDS: HEPARIN SODIUM,PORCINE 5,000 UNITS/ML VIAL SQ SCH ×2 (09:06→16:04)
[2018-05-15] MEDS: PANTOPRAZOLE SODIUM 40 MG DR TABLET PO SCH (09:06)
[2018-05-15] MEDS: METHIMAZOLE 10 MG TABLET PO SCH (09:06)
[2018-05-15 09:10] LABS: ANION GAP 11 mmol/L (8-16); CALCIUM, TOTAL 9.2 mg/dL (8.8-10.5); CARBON DIOXIDE 22 mmol/L (22-29); CHLORIDE 107 mmol/L (98-107); CREATININE 0.41 mg/dL (0.60-1.30); GLOMERULAR FILTR. RATE CALC > 60 mL/min (>60); PHOSPHORUS 3.5 mg/dL (2.5-4.9); POTASSIUM 4.3 mmol/L (3.5-5.1); SODIUM SERUM 140 mmol/L (136-145)
[2018-05-15 09:29] LABS: UREA NITROGEN, BLOOD 5 mg/dL (7-18)
[2018-05-15] MEDS: CALCITONIN,SALMON,SYNTHETIC 200 UNITS/ML 2 ML VIAL SQ SCH ×2 (10:15→21:06)
[2018-05-16] VITALS (7 sets, daily range): BP systolic 92–117; BP diastolic 51–57
[2018-05-16] MEDS: HEPARIN SODIUM,PORCINE 5,000 UNITS/ML VIAL SQ SCH ×3 (00:33→15:29)
[2018-05-16 06:55] LABS: ANION GAP 13 mmol/L (8-16); CALCIUM, TOTAL 9.7 mg/dL (8.8-10.5); CARBON DIOXIDE 21 mmol/L (22-29); CHLORIDE 105 mmol/L (98-107); CREATININE 0.38 mg/dL (0.60-1.30); GLOMERULAR FILTR. RATE CALC > 60 mL/min (>60); GLUCOSE,RANDOM 84 mg/dL (70-110); POTASSIUM 4.1 mmol/L (3.5-5.1); SODIUM SERUM 139 mmol/L (136-145); UREA NITROGEN, BLOOD 7 mg/dL (7-18)
[2018-05-16] MEDS: MAGNESIUM OXIDE 400 MG TABLET PO PRN ×3 (08:48→15:31)
[2018-05-16] MEDS: METHIMAZOLE 10 MG TABLET PO SCH (08:48)
[2018-05-16] MEDS: DOCUSATE SODIUM 100 MG CAPSULE PO SCH ×2 (08:49→20:23)
[2018-05-16] MEDS: PANTOPRAZOLE SODIUM 40 MG DR TABLET PO SCH (08:49)
[2018-05-16] MEDS: POTASSIUM PHOS/SODIUM PHOS MIXTURE 1 POWDER PACKET PO SCH ×3 (08:49→20:23)
[2018-05-16] MEDS: CALCITONIN,SALMON,SYNTHETIC 200 UNITS/ML 2 ML VIAL SQ SCH (08:54)
[2018-05-16] MEDS: ClonazePAM 1 MG TABLET PO PRN (18:58)
[2018-05-17] MEDS: HEPARIN SODIUM,PORCINE 5,000 UNITS/ML VIAL SQ SCH ×3 (00:09→16:41)
[2018-05-17 05:34] VITALS: BP 96/58
[2018-05-17 06:13] LABS: ANION GAP 10 mmol/L (8-16); CALCIUM, TOTAL 10.2 mg/dL (8.8-10.5); CARBON DIOXIDE 25 mmol/L (22-29); CHLORIDE 104 mmol/L (98-107); CREATININE 0.43 mg/dL (0.60-1.30); GLOMERULAR FILTR. RATE CALC > 60 mL/min (>60); GLUCOSE,RANDOM 86 mg/dL (70-110); PHOSPHORUS 4.9 mg/dL (2.5-4.9); SODIUM SERUM 139 mmol/L (136-145); UREA NITROGEN, BLOOD 6 mg/dL (7-18)
[2018-05-17 09:15] VITALS: BP 101/50
[2018-05-17] MEDS: METHIMAZOLE 10 MG TABLET PO SCH (09:30)
[2018-05-17] MEDS: DOCUSATE SODIUM 100 MG CAPSULE PO SCH ×2 (09:30→20:31)
[2018-05-17] MEDS: PANTOPRAZOLE SODIUM 40 MG DR TABLET PO SCH (09:30)
[2018-05-17] MEDS: POTASSIUM PHOS/SODIUM PHOS MIXTURE 1 POWDER PACKET PO SCH ×3 (09:30→20:31)
[2018-05-17 14:00] VITALS: BP 105/58
[2018-05-17 20:03] VITALS: BP 104/67
[2018-05-18] VITALS (7 sets, daily range): BP systolic 82–109; BP diastolic 43–66
[2018-05-18] MEDS: HEPARIN SODIUM,PORCINE 5,000 UNITS/ML VIAL SQ SCH ×3 (00:30→16:00)
[2018-05-18] MEDS: DOCUSATE SODIUM 100 MG CAPSULE PO SCH ×3 (09:24→20:58)
[2018-05-18] MEDS: PANTOPRAZOLE SODIUM 40 MG DR TABLET PO SCH (09:24)
[2018-05-18] MEDS: METHIMAZOLE 10 MG TABLET PO SCH (09:24)
[2018-05-18 09:51] LABS: BASOPHILS % (AUTO) 0.6 % (0.0-2.0); EOSINOPHILS % (AUTO) 3.3 % (1.0-6.0); HEMOGLOBIN 10.6 g/dL (12.0-16.0); LYMPHOCYTES # (AUTO) 1.7 K/uL (1.0-4.8); LYMPHOCYTES % (AUTO) 52.3 % (22.0-44.0); MEAN CORPUSCULAR HEMOGLOBIN 31.7 pg (26.0-34.0); MEAN CORPUSCULAR HGB CONC 34.3 G/dL (31.0-37.0); MEAN CORPUSCULAR VOLUME 93 fL (80-100); MONOCYTES # (AUTO) 0.3 K/uL (0.1-1.0); MONOCYTES % (AUTO) 8.7 % (2.0-9.0); NEUTROPHILS # (AUTO) 1.1 K/uL (1.8-7.7); NEUTROPHILS % (AUTO) 35.1 % (40.0-70.0); PLATELET COUNT (AUTO) 168 K/uL (150-450); RED BLOOD CELL COUNT(AUTO) 3.35 MIL/uL (4.00-5.20)
[2018-05-18 09:52] LABS: ANION GAP 11 mmol/L (8-16); CALCIUM, TOTAL 10.1 mg/dL (8.8-10.5); CARBON DIOXIDE 25 mmol/L (22-29); CHLORIDE 104 mmol/L (98-107); GLOMERULAR FILTR. RATE CALC > 60 mL/min (>60); GLUCOSE,RANDOM 89 mg/dL (70-110); POTASSIUM 3.6 mmol/L (3.5-5.1); SODIUM SERUM 140 mmol/L (136-145); UREA NITROGEN, BLOOD 6 mg/dL (7-18)
[2018-05-18 09:57] LABS: ALANINE AMINOTRANSFERASE 34 U/L (12-78); ALBUMIN 4.4 g/dL (3.4-5.0); ALKALINE PHOSPHATASE 56 U/L (46-116); ASPARTATE AMINOTRANSFERASE 25 U/L (15-37); BILIRUBIN,TOTAL 0.8 mg/dL (0.1-1.0); TOTAL PROTEIN, SERUM 6.5 g/dL (6.4-8.2)
[2018-05-18] MEDS: POTASSIUM PHOS/SODIUM PHOS MIXTURE 1 POWDER PACKET PO SCH (11:09)
[2018-05-18] MEDS ORDERED: POTASSIUM CHLORIDE 10 MEQ ER TABLET PO ONE (11:15)
[2018-05-18 11:56] LABS: PHOSPHORUS 5.2 mg/dL (2.5-4.9)
[2018-05-18] MEDS ORDERED: SODIUM CHLORIDE 0.9% 500 ML IV ONE (12:15)
[2018-05-19] VITALS: BP 107/66
[2018-05-19] MEDS: LORazepam 2 MG/ML VIAL IVP PRN
[2018-05-19 05:55] VITALS: BP 100/45
[2018-05-19] MEDS: HEPARIN SODIUM,PORCINE 5,000 UNITS/ML VIAL SQ SCH ×3 (09:08→17:04)
[2018-05-19] MEDS: METHIMAZOLE 10 MG TABLET PO SCH (09:09)
[2018-05-19] MEDS: DOCUSATE SODIUM 100 MG CAPSULE PO SCH ×2 (09:09→20:32)
[2018-05-19] MEDS: PANTOPRAZOLE SODIUM 40 MG DR TABLET PO SCH (09:09)
[2018-05-19 09:20] VITALS: BP 91/55
[2018-05-19 12:00] VITALS: BP 102/68
[2018-05-19] MEDS ORDERED: TUBERCULIN, PURIFIED PROTEIN DERIVATIVE 5 TU/0.1 ML SYRINGE ID ONE (12:45)
[2018-05-19 15:00] VITALS: BP 94/62
[2018-05-19] MEDS ORDERED: MIDODRINE HCL 5 MG TABLET PO PRN (18:45)
[2018-05-19 19:59] VITALS: BP 100/63
[2018-05-19] MEDS: HYDROCODONE/ACETAMINOPHEN 5-325 MG TABLET PO PRN (22:40)
[2018-05-20] MEDS: ClonazePAM 1 MG TABLET PO PRN (00:32)
[2018-05-20] MEDS: HEPARIN SODIUM,PORCINE 5,000 UNITS/ML VIAL SQ SCH ×3 (00:32→16:18)
[2018-05-20 00:33] VITALS: BP 96/58
[2018-05-20 04:59] VITALS: BP 104/66
[2018-05-20 06:24] LABS: ANION GAP 9 mmol/L (8-16); CALCIUM, TOTAL 9.9 mg/dL (8.8-10.5); CARBON DIOXIDE 25 mmol/L (22-29); CHLORIDE 104 mmol/L (98-107); CREATININE 0.53 mg/dL (0.60-1.30); GLOMERULAR FILTR. RATE CALC > 60 mL/min (>60); GLUCOSE,RANDOM 83 mg/dL (70-110); PHOSPHORUS 4.6 mg/dL (2.5-4.9); SODIUM SERUM 138 mmol/L (136-145); UREA NITROGEN, BLOOD 12 mg/dL (7-18)
[2018-05-20 07:40] VITALS: BP 92/52
[2018-05-20] MEDS: DOCUSATE SODIUM 100 MG CAPSULE PO SCH ×2 (09:11→21:01)
[2018-05-20] MEDS: PANTOPRAZOLE SODIUM 40 MG DR TABLET PO SCH (09:11)
[2018-05-20] MEDS: METHIMAZOLE 10 MG TABLET PO SCH (09:11)
[2018-05-20] MEDS: MAGNESIUM OXIDE 400 MG TABLET PO PRN ×3 (09:11→21:01)
[2018-05-20 11:21] VITALS: BP_SYST 121; BP_SYST 91; BP_DIAS 61; BP_DIAS 70
[2018-05-20 16:05] VITALS: BP 109/50
[2018-05-20 19:22] VITALS: BP 103/62
[2018-05-21] VITALS (7 sets, daily range): BP systolic 80–102; BP diastolic 45–60
[2018-05-21] MEDS: ACETAMINOPHEN 325 MG TABLET PO PRN (00:59)
[2018-05-21] MEDS: HEPARIN SODIUM,PORCINE 5,000 UNITS/ML VIAL SQ SCH ×4 (01:00→23:35)
[2018-05-21] MEDS ORDERED: SODIUM CHLORIDE 0.9% 1,000 ML IV ONE (01:00)
[2018-05-21 07:21] LABS: ANION GAP 10 mmol/L (8-16); CALCIUM, TOTAL 9.6 mg/dL (8.8-10.5); CARBON DIOXIDE 25 mmol/L (22-29); CHLORIDE 104 mmol/L (98-107); CREATININE 0.48 mg/dL (0.60-1.30); GLOMERULAR FILTR. RATE CALC > 60 mL/min (>60); GLUCOSE,RANDOM 83 mg/dL (70-110); POTASSIUM 3.9 mmol/L (3.5-5.1); SODIUM SERUM 139 mmol/L (136-145); UREA NITROGEN, BLOOD 17 mg/dL (7-18)
[2018-05-21] MEDS: PANTOPRAZOLE SODIUM 40 MG DR TABLET PO SCH (09:31)
[2018-05-21] MEDS: METHIMAZOLE 10 MG TABLET PO SCH (09:31)
[2018-05-21] MEDS: DOCUSATE SODIUM 100 MG CAPSULE PO SCH ×2 (09:31→21:41)
[2018-05-21] MEDS: ClonazePAM 1 MG TABLET PO PRN (23:34)
[2018-05-22 00:25] VITALS: BP 100/57
[2018-05-22] MEDS: HYDROCODONE/ACETAMINOPHEN 5-325 MG TABLET PO PRN (02:58)
[2018-05-22 04:09] VITALS: BP 96/59
[2018-05-22 07:48] LABS: ANION GAP 11 mmol/L (8-16); CALCIUM, TOTAL 9.2 mg/dL (8.8-10.5); CARBON DIOXIDE 25 mmol/L (22-29); CHLORIDE 103 mmol/L (98-107); CREATININE 0.51 mg/dL (0.60-1.30); GLOMERULAR FILTR. RATE CALC > 60 mL/min (>60); GLUCOSE,RANDOM 79 mg/dL (70-110); SODIUM SERUM 139 mmol/L (136-145); UREA NITROGEN, BLOOD 18 mg/dL (7-18)
[2018-05-22] MEDS: DOCUSATE SODIUM 100 MG CAPSULE PO SCH (08:01)
[2018-05-22] MEDS: METHIMAZOLE 10 MG TABLET PO SCH (08:01)
[2018-05-22] MEDS: HEPARIN SODIUM,PORCINE 5,000 UNITS/ML VIAL SQ SCH (08:01)
[2018-05-22] MEDS: PANTOPRAZOLE SODIUM 40 MG DR TABLET PO SCH (08:01)
[2018-05-22] MEDS ORDERED: METHI10 PO (10:40)
[2018-05-22] MEDS ORDERED: CLON1 PO (10:41)
[2018-05-22 11:31] VITALS: BP 92/68
[2018-05-22 11:33] VITALS: BP 98/65
== END 2018-05-22 12:45 | disposition home or self-care (01) | DRG 425 ==
LOC: 5S 10:35
PROVIDERS: ADMIT Internal Medicine; ATTEND Internal Medicine
DX: E83.52 Hypercalcemia (principal); G93.41 Metabolic encephalopathy; E43 Unspecified severe protein-calorie malnutrition; I95.9 Hypotension, unspecified; E87.2 Acidosis; K70.30 Alcoholic cirrhosis of liver without ascites; F25.9 Schizoaffective disorder, unspecified; E87.6 Hypokalemia; E83.42 Hypomagnesemia; E83.39 Other disorders of phosphorus metabolism; E05.00 Thyrotoxicosis with diffuse goiter without thyrotoxic crisis or storm; J45.909 Unspecified asthma, uncomplicated; D64.9 Anemia, unspecified; E05.90 Thyrotoxicosis, unspecified without thyrotoxic crisis or storm; Z68.25 Body mass index [BMI] 25.0-25.9, adult
CPT/HCPCS: 70551; 82306; 82397; 82652; 83735; 83970; 84100; 84132; 92526; 92610; 95816; 97116; 97163; 97166; 97530; 97535; G0378; J0630; J1630; J1644; J2060; J2430; J3475; J3480; J3490; J7040; J7042; J7050; J7060; P9046